=== PATIENT | female | born 1950 | race African-American/Black ===

== ENCOUNTER 2018-02-05 16:40 | Emergency (ER) | payer SELFPAY ==
[~2018-02-05] VITALS: Ht 160 cm; Wt 57.0 kg
[2018-02-05 18:30] VITALS: BP 149/74
[2018-02-05] MEDS ORDERED: IBUPROFEN 800MG TABLET PO ONE (18:30)
== END 2018-02-05 19:25 | disposition home or self-care (01) ==
LOC: ER 19:08
DX: J02.9 Acute pharyngitis, unspecified (principal); B08.8 Other specified viral infections characterized by skin and mucous membrane lesions; M25.512 Pain in left shoulder; Z98.51 Tubal ligation status
CPT/HCPCS: 73030; 99283

== ENCOUNTER 2022-02-11 15:35 | Emergency (ER) | payer MEDICARE ==
[~2022-02-11] VITALS: Ht 160 cm; Wt 60.0 kg
[2022-02-11 19:29] VITALS: BP 136/76
== END 2022-02-11 19:30 | disposition home or self-care (01) ==
LOC: ER 15:48
DX: H93.11 Tinnitus, right ear (principal)
CPT/HCPCS: 99281

== ENCOUNTER 2023-03-23 12:42 | Emergency (ER) | payer MEDICARE ==
[~2023-03-23] VITALS: Ht 160 cm; Wt 68.0 kg
[2023-03-23 12:47] VITALS: BP 112/73; PULSE 102; RESP 20; O2SAT 98
[2023-03-23 14:00] VITALS: TEMP 97.8
[2023-03-23] MEDS ORDERED: ACETAMINOPHEN 325MG TABLET PO ONE (14:00)
[2023-03-23] MEDS ORDERED: DEXAMETHASONE 4MG TABLET PO ONE (14:00)
[2023-03-23] MEDS ORDERED: AMOX-494 MT (16:35)
== END 2023-03-23 18:23 | disposition home or self-care (01) ==
LOC: ER 13:50
DX: J02.9 Acute pharyngitis, unspecified (principal); R09.81 Nasal congestion; E78.00 Pure hypercholesterolemia, unspecified; I10 Essential (primary) hypertension; Z98.51 Tubal ligation status; Z20.822 Contact with and (suspected) exposure to COVID-19
CPT/HCPCS: 99283; 87426; 87430; 87070; 87804 ×2; J8540

== ENCOUNTER 2024-01-26 18:43 | Emergency (ER) | payer MEDICARE, MEDICAID ==
[~2024-01-26] VITALS: Ht 160 cm; Wt 63.0 kg
[~2024-01-26 18:43] MED LIST: AMOX-494 MT
[2024-01-26 19:05] VITALS: TEMP 98.9; O2SAT 100
[2024-01-26] MEDS ORDERED: VALA100044 MT (23:09)
[2024-01-26] MEDS: ACETAMINOPHEN 500MG TABLET PO ONE (23:19)
[2024-01-26 23:30] VITALS: BP 144/79; PULSE 79; RESP 18; O2SAT 99
== END 2024-01-26 23:34 | disposition home or self-care (01) ==
LOC: ER 18:56
DX: B02.9 Zoster without complications (principal); E78.00 Pure hypercholesterolemia, unspecified; I10 Essential (primary) hypertension; Z90.89 Acquired absence of other organs; Z98.51 Tubal ligation status
CPT/HCPCS: 99283